=== PATIENT | female | born 1955 | race Caucasian/White ===

== ENCOUNTER 2021-06-06 16:04 | Emergency (ER) | payer OTHER ==
[~2021-06-06] VITALS: Ht 157.5 cm; Wt 100.0 kg
[~2021-06-06 16:04] MED LIST: ADDERALL XR20 MG PO; ALBUTEROL0.09 MG/A1 IH; ALPRAZOLAM; BENADRYL25 MG PO; DAZIDOX20 MG PO; EPI-PEN1 MG/ML MR; FLEXERIL; FLEXERIL10 MG PO; GELNIQUE100 MG/GM TD; GLUCOTROL10 MG PO; KLONOPIN 1MG1 MG PO; LORTAB PO; MEPEREDINE50 MG PO; NAPROXEN 3375 MG/TAB PO; NEURONTIN100 MG/CAP PO; OXYCODONE HCL40 MG PO; OXYCONTIN40 MG PO; OXYCONTIN60 MG PO; PAXIL 30MG30 MG PEG; PEN-VEE K500 MG PO; PREVACID 30MG30 MG PO; PRILOSEC10 MG PO; PROAIR HFA0.09 MG/AC IH; TYLENOL 325MG325 MG PO; XANAX XR1 MG PO; proair
[2021-06-06 16:23] VITALS: TEMP 98.7
[2021-06-06 17:42] LABS: BASO % 0.5 % (0.0-2.0); EOS # 0.1 K/mm3 (0.0-0.7); EOS % 1.2 % (0-4.0); GRAN # 5.3 K/mm3 (1.4-6.5); GRAN % 66.2 % (42.2-75.2); HEMATOCRIT 38.2 % (37.0-47.0); HEMOGLOBIN 13.2 g/dl (12.5-16.0); LYMPH % 25.2 % (20.0-51.0); MEAN CELL VOLUME 83 fl (80.0-100.0); MEAN CORPUSCULAR HEMOGLOBIN 29 pg (27.0-31.0); MEAN CORPUSCULAR HGB CONC 35 g/dl (33.0-37.0); MEAN PLATELET VOLUME 10.8 fl (7.4-10.4); MONO # 0.5 K/mm3 (0.1-0.6); MONO % 6.7 % (1.7-9.3); PLATELET COUNT 274 K/mm3 (130-400); RED BLOOD COUNT 4.62 M/mm3 (4.10-5.30); REDCELL DISTRIBUTION WIDTH-CV 13.3 % (11.5-14.5)
[2021-06-06 18:01] LABS: ALANINE AMINOTRANSFERASE 15 U/L (0-55); ALBUMIN 3.5 gm/dL (3.4-4.8); ALKALINE PHOSPHATASE 76 U/L (40-150); ANION GAP 9 mmol/L (7-16); AST,SGOT 22 U/L (5-34); BILIRUBIN,TOTAL 0.5 mg/dL (0.2-1.2); BLOOD UREA NITROGEN 13 mg/dL (10-20); CALCIUM 8.6 mg/dL (8.4-10.2); CARBON DIOXIDE 24 mmol/L (23-31); CHLORIDE 107 mmol/L (98-107); CREATININE, serum 0.87 mg/dL (0.57-1.11); GLUCOSE 261 mg/dL (70-99); POTASSIUM 4.3 mmol/L (3.5-4.5); SODIUM 140 mmol/L (136-145)
[2021-06-06 18:15] LABS: TROPONIN-I < 0.010 ng/mL (0.00-0.033)
[2021-06-06] MEDS ORDERED: NORCO 325 MG-51 TAB PO (19:08)
[2021-06-06 19:33] VITALS: BP 154/90; PULSE 64
== END 2021-06-06 19:33 | disposition home or self-care (01) ==
LOC: COL.ER 16:04
PROVIDERS: Nurse Practitioner
DX: S46.911A Strain of unspecified muscle, fascia and tendon at shoulder and upper arm level, right arm, initial encounter (principal); S86.911A Strain of unspecified muscle(s) and tendon(s) at lower leg level, right leg, initial encounter; S70.01XA Contusion of right hip, initial encounter; S09.90XA Unspecified injury of head, initial encounter; I10 Essential (primary) hypertension; Z98.890 Other specified postprocedural states; W19.XXXA Unspecified fall, initial encounter
CPT/HCPCS: J2270

== ENCOUNTER 2024-04-13 06:03 | Day surgery (SDC) | payer MEDICARE ==
[~2024-04-13] VITALS: Ht 157.5 cm; Wt 103.2 kg
[~2024-04-13 06:03] MED LIST changes: +LR 1,000 ML IV SCH; +NORCO 325 MG-51 TAB PO; +Ondansetron 4 MG/2 ML VIAL IV PRN
[2024-04-13] MEDS ORDERED: Glycopyrrolate 0.2 MG/ML 1 ML VIAL ONE (06:53)
[2024-04-13] MEDS ORDERED: Lidocaine PF 2% (20 MG/ML) 5 ML VIAL ONE (06:53)
[2024-04-13 06:55] VITALS: BP 92/54; PULSE 87; TEMP 96.7
--- NOTE | 2024-04-13 07:02 | NUR ---
Pt arrived in facility wheelchair with help from daughter (chuck wagon driver); reports bowels are WNL for the procedure; VSS (BP lower but near baseline from office visit on H&P) and RR even though labored with ambulation; reveiwed meds/pharmacy/allergies/history and updated; per chart pt does not want blood products due to judaism but RN went over consent x3 with pt and daughter in room and she consented to blood; 20G IV to DERIK, flushes well, LR hanging.
[2024-04-13] MEDS ORDERED: ZOLOFT 50MG50 MG PO (07:04)
[2024-04-13] MEDS ORDERED: ATIVAN 0.50.5 MG/TAB PO (07:05)
[2024-04-13] MEDS ORDERED: MOUNJARO2.5 MG/0.5 SQ (07:05)
[2024-04-13 07:49] VITALS: BP 91/49; PULSE 85; TEMP 96.7
== END 2024-04-13 08:00 | disposition home or self-care (01) ==
LOC: SDCO 06:03
DX: Z12.11 Encounter for screening for malignant neoplasm of colon (principal); Z87.891 Personal history of nicotine dependence; Z53.8 Procedure and treatment not carried out for other reasons
CPT/HCPCS: J2704; J7120